=== PATIENT | female | born 1970 | race Caucasian/White ===

== ENCOUNTER → 2019-01-13 | Outpatient (CLI) | payer BC | LOC: LAB.O 08:55 | PROVIDERS: ATTEND Family Medicine | DX: E04.1 Nontoxic single thyroid nodule (principal); R13.10 Dysphagia, unspecified ==

== ENCOUNTER → 2019-01-14 | Outpatient (CLI) | payer BC ==
--- NOTE | 2019-01-17 08:27 | US ---
EXAM DESCRIPTION: Soft Tissue,Head/Neck CLINICAL HISTORY: 48 years, Female, DYSPHAGIA. Swelling on left side neck. COMPARISON: None. FINDINGS: Thyroid ultrasound demonstrates a normal size, shape, and echotexture of the thyroid gland and isthmus. The right lobe measures 4 x 1.2 x 1.3 cm. Within the right thyroid lobe a 0.5 x 0.3 x 0.3 cm hypoechoic nodule is present posteriorly. The left lobe measures 3.5 x 1.1 x 1.1 cm. Within the left thyroid lobe a 0.5 x 0.4 x 0.7 hypoechoic nodule is present laterally. There is no dominant nodule or suspicious mass. There is mild soft tissue swelling overlying the left side of neck, no underlying mass or drainable fluid collection is identified. Normal appearing lymph nodes measuring five mm in short axis is present on left. No enlarged or suspicious lymph nodes. IMPRESSION: 1. Normal thyroid size and echotexture. Subcentimeter thyroid nodule (one on each side). No routine nodule follow-up. 2. No lymphadenopathy, mass, or drainable fluid collection seen on ultrasound. If patient's symptoms persist, further evaluation with CT soft tissue neck can be considered. Electronically signed by: Ernesto Cook DO 01/17/2019 8:25 AM CDT
== END ==
LOC: US 13:23
PROVIDERS: ATTEND Family Medicine
DX: R13.10 Dysphagia, unspecified (principal)

== ENCOUNTER 2019-01-18 14:06 | Emergency (ER) | payer BC ==
[2019-01-18 14:36] VITALS: TEMP 99.1
--- NOTE | 2019-01-18 15:10 | RAD ---
EXAM DESCRIPTION: Chest,1 View CLINICAL HISTORY: 48 years Female, shortness of breath COMPARISON: None. IMPRESSION: Heart size and pulmonary vascularity are within normal limits. There is no airspace consolidation, pleural effusion, or pneumothorax. No acute osseous abnormality. Electronically signed by: Yoshi Guzman MD 01/18/2019 3:08 PM CDT
--- NOTE | 2019-01-18 15:55 | ED.PDOC ---
History of Present Illness - General Chief Complaint: Respiratory Problem Time Seen by Provider: 01/18/19 15:29 Source: patient, family Exam Limitations: no limitations - History of Present Illness Initial Comments: 2 WKS PAIN IN LEFT HEAD, NECK, JAW, SUPERIOR CHEST, AND TINGLING OF LUE. ALSO SOB. LEFT CP OFF AND ON X 2 WKS. TODAY ALSO FELT LIGHT-HEADED AND JITTERY. L NECK SWOLLEN AND TTP. DR. BUTT ORDERED U/S (NEG EXCEPT FOR SOFT TISSUE SWELLING). Timing/Duration: intermittent Severity: moderate Improving Factors: nothing Worsening Factors: nothing Associated Symptoms: chest pain, headaches, shortness of breath Allergies/Adverse Reactions: Allergies NO KNOWN ALLERGY Allergy (Verified 01/18/19 14:36) Home Medications: Ambulatory Orders Methylprednisolone [Medrol Dose Michael] 4 mg PO DAILY #1 tab 01/18/19 raNITIdine HCL [Zantac] 150 mg PO DAILY 01/18/19 Review of Systems - Review of Systems Constitutional: States: no symptoms reported EENTM: Denies: eye pain, blurred vision, ear pain, nose pain, throat pain Respiratory: States: short of breath. Denies: cough, wheezing Cardiology: States: chest pain. Denies: palpitations Gastrointestinal/Abdominal: Denies: abdominal pain, nausea Genitourinary: States: no symptoms reported Musculoskeletal: States: neck pain - LEFT SUPERFICIAL TISSUES. . Denies: back pain, joint pain Skin: States: no symptoms reported Neurological: States: headache - L FRONTAL PEREZ, ABSENT AT PRESENT. INTERMITTENT. , paresthesia - LUE Endocrine: States: no symptoms reported Hematologic/Lymphatic: States: no symptoms reported All other Systems: Reviewed and Negative Past Medical History (General) - Patient Medical History Hx Seizures: No Hx Asthma: No Hx Thyroid Disease: No Hx Diabetes: No Hx Gastroesophageal Reflux: Yes Surgical History: cholecystectomy, other - Social History Hx Tobacco Use: No - Female History Patient is a Female of Child Bearing Age (10 -59 yrs old): Yes Patient : No Family Medical History - Family History Mother Family History: No Known Physical Exam - Physical Exam General Appearance: Alert, Obese Eye Exam: bilateral normal Ears, Nose, Throat: hearing grossly normal, normal ENT inspection - TM'S CLEAR. , normal pharynx Neck: full range of motion, normal inspection, tender lateral - L SUPERFICIAL NECK AND SUPERIOR CHEST EXQUISITELY TTP. NO PAIN WITH NECK MOVEMENT. NEG KERNIG AND BRUDZINSKI'S. NO AMS. NO FEVERS. Respiratory: chest non-tender, lungs clear, normal breath sounds, no respiratory distress, no accessory muscle use Cardiovascular/Chest: normal peripheral pulses, regular rate, rhythm, no edema, no gallop, no JVD, no murmur Peripheral Pulses: radial,right: 2+, radial,left: 2+ Gastrointestinal/Abdominal: normal bowel sounds, non tender, soft Extremity: normal range of motion, non-tender, normal inspection, pedal edema - BLE PRE-TIBIAL AND ANKLE EDEMA. Neurologic: nurse chemical dependency II-XII nml as tested, no motor/sensory deficits, alert, normal mood/affect, oriented x 3 Skin Exam: normal color, warm/dry Lymphatic: no adenopathy - L NECK SOFT TISSUE TTP BUT NO DISCRETE LYMPH NODES. Progress - Progress Progress: 01/18/19 16:53 W/U WNL SO FAR. HEAD CT AND NECK SOFT TISSUE PENDING. 01/18/19 17:17 THE RADIOLOGIST CALLED ME AND INFORMED ME THE BRAIN CT NEEDS TO BE WITHOUT AND WITH CONTRAST, SO I AM PLACING THE ORDER RIGHT NOW AND THEY WILL TAKE HER BACK TO CT AGAIN TO DO BRAIN WITHOUT CONTRAST. 01/18/19 19:25 ENTIRE W/U NEG: CARD ENZ, CBC, CMP, COAG, EKG, CXR, UA, BNP, HEAD CT, NECK SOFT TISSUE CT. NO EXPLANATION FOR PT'S SX. CP X 2 WKS, THUS 1 SET CARD ENZ R/O ACS. RX MEDROL DOSE PACK FOR ANTI-INFLAMMATORY. F/U W/ PCP OR ENT. 01/18/19 19:29 Departure - Departure Clinical Impression: Frontal headache, Neck pain on left side, Jaw pain, Non-cardiac chest pain, Paresthesia of left arm Disposition: Discharge to Home or Self Care Condition: Good Departure Forms: ED Discharge - Pt. Copy, Patient Portal Self Enrollment Instructions: Chest Pain That Is Not Caused by the Heart (DC) Diet: resume usual diet Activity: increase activity as tolerated Referrals: Dion Butt III, MD [Primary Care Provider] - 1-2 Weeks Prescriptions: Methylprednisolone [Medrol Dose Michael] 4 mg PO DAILY #1 tab Home Medications: Ambulatory Orders Methylprednisolone [Medrol Dose Michael] 4 mg PO DAILY #1 tab 01/18/19 raNITIdine HCL [Zantac] 150 mg PO DAILY 01/18/19
--- NOTE | 2019-01-18 17:35 | CT ---
EXAM DESCRIPTION: Soft Tissue Neck w/Contrast: Computed Tomography CLINICAL HISTORY: 48 years Female, 2 WKS LEFT PAIN IN HEAD, NECK, JAW, TINGLING LUE COMPARISON: CT scan of the head with IV contrast on the same visit. TECHNIQUE: Spiral, axial 2.5 x 2.5 mm scans through the neck soft tissues after infusion of IV contrast. Sagittal and coronal 2.0 mm reconstructions. Axial 1.25 mm reconstructions. No adverse reactions. Total Exam DLP: 458.55 mGy-cm. This exam was performed according to our departmental CT dose-optimization program which includes automated exposure control, adjustment of the mA and/or kV according to patient size and/or use of iterative reconstruction technique; to reduce radiation dose to as low as reasonably achievable (ALARA). FINDINGS: Normal caliber of the airway from the nasopharynx to the thoracic inlet with no effacement or displacement. Thyroid gland is negative. Small lymph nodes in the upper mediastinum. No enlarged lymph nodes in the parathyroid region, paracervical region, carotid spaces or parapharyngeal spaces. Normal size and enhancement of the submandibular glands, parotid glands, and the sublingual glands. The subdermal and subcutaneous adipose tissue is symmetric. Included lungs are negative. The included cervical spine and thoracic spine is unremarkable. IMPRESSION: No soft tissue masses or fluid collections or abnormal contrast enhancement in the neck. Electronically signed by: Calvin Reynolds MD 01/18/2019 5:34 PM CDT
--- NOTE | 2019-01-18 18:21 | CT ---
EXAM DESCRIPTION: Head w/wo IV Contrast: Computed Tomography. CLINICAL HISTORY: HEADACHES COMPARISON: CT neck soft tissues with IV contrast on this visit. TECHNIQUE: Non-helical axial scans through the skull and brain, at 2.5 x 20 mm intervals, non-contrast. Repeated after 75 mL Optiray 320 nonionic IV contrast. Coronal and sagittal 2.0 mm reconstructions, before and after IV contrast. Total Exam DLP: 1089.2 mGy-cm. This exam was performed according to our departmental dose-optimization program which includes automated exposure control, adjustment of the mA and/or kV according to patient size and/or use of iterative reconstruction technique; to reduce radiation dose to as low as reasonably achievable (ALARA). FINDINGS: No hemorrhage, no mass-effect, and no midline shift. Normal reyes-white matter differentiation. No abnormal radiodense material in the brain parenchyma. No abnormal contrast enhancement. Vascular calcifications not present; physiologic calcifications in the pineal gland and choroid plexus. Normal contrast enhancement. No effacement or displacement of the ventricles, CSF spaces, or subdural spaces. Slight prominence of the cortical sulci of the frontal lobes for patient's age. No extra axial fluid collection or hemorrhage. Normal contrast enhancement. No gross abnormalities of the bony calvarium. Minimal mucoperiosteal thickening in the maxillary antra with no air-fluid levels. Mastoid air cells are negative. The included belkofski of Lemus is unremarkable. IMPRESSION: 1. No hemorrhage, no mass effect, no midline shift. No abnormal brain parenchymal enhancement. No extra-axial abnormal enhancement or fluid or hemorrhage. Electronically signed by: Calvin Reynolds MD 01/18/2019 6:19 PM CDT
[2019-01-18] MEDS ORDERED: KETOROLAC TROMETHAMINE INJ 30 MG/ML VIAL IV ONE (18:26)
[2019-01-18 19:11] VITALS: BP 118/74; O2SAT 99
[2019-01-18] MEDS ORDERED: methylPREDNISolone ACETATE 80 MG/ML VIAL IM ONE (19:26)
== END 2019-01-18 19:50 | disposition home or self-care (01) ==
LOC: ER 14:06
DX: R07.89 Other chest pain (principal); R51 Headache; M54.2 Cervicalgia; R68.84 Jaw pain; R20.2 Paresthesia of skin; K21.9 Gastro-esophageal reflux disease without esophagitis; Z90.49 Acquired absence of other specified parts of digestive tract
CPT/HCPCS: 36415; 70470; 70491; 71045; 80048; 81001; 82550; 82553; 83880; 84484; 85025; 85610; 85730; 87086; 93005; J1030; J1885

== ENCOUNTER → 2019-02-01 | Outpatient (CLI) | payer BC ==
--- NOTE | 2019-02-03 20:36 | MAM ---
EXAM DESCRIPTION: 3D Screening BILATERAL : Digital Mammography. CLINICAL HISTORY: 48 years Female SCREEN . No complaints. No personal history of breast cancer. Remote family history of breast cancer. Childbirth. Premenopausal. No HRT.. Lifetime risk of developing breast cancer (Tyrer-Cuzick model)(%): 7.8. COMPARISON: Not available at this time.. No prior reports available. TECHNIQUE: Bilateral CC and MLO projection full-field images, digital tomosynthesis mammographic technique. Bilateral digital 2-D full-field MLO images. CAD not available for tomosynthesis or 2-D images. FINDINGS: The breast parenchymal density pattern is: Heterogeneously dense breast tissue, which may obscure small masses. No skin thickening or nipple retraction. Bilateral skin calcifications. Focal asymmetry in the lateral aspect of the anterior third of the left breast approximately 3 cm from the nipple at the 3:00 position. Not associated with microcalcifications. No focal, stellate mass or density, focal asymmetry , and no suspicious microcalcifications right breast. IMPRESSION: BI-RADS CATEGORY: 0 - INCOMPLETE- Need prior mammograms for comparison. FOLLOW-UP: Comparison with prior examination(s) when available. Written communication explaining the results and follow-up will be mailed to the patient and referring care provider. Electronically signed by: Calvin Reynolds MD 02/03/2019 8:35 PM CDT
== END ==
LOC: MAMMO 08:00
PROVIDERS: ATTEND Obstetrics & Gynecology
DX: Z12.31 Encounter for screening mammogram for malignant neoplasm of breast (principal)

== ENCOUNTER → 2019-02-09 | Outpatient (CLI) | payer BC ==
--- NOTE | 2019-02-09 12:45 | MRI ---
EXAM DESCRIPTION: Cervical Spine CLINICAL HISTORY: NECK PAIN COMPARISON: None Available. TECHNIQUE: MRI of the cervical spine is performed according to our usual protocol. FINDINGS: Sagittal T2 images reveal mildly decreased signal intensity within the intervertebral discs. Normal T2 appearance of the cervical cord. Posterior discal abnormalities are not a prominent finding. Slight reversal of the normal cervical lordosis. Sagittal T1 images show benign marrow signal characteristics. Normal T1 appearance of the cervical and upper thoracic spinal cord. Normal alignment of the vertebral bodies and facets. Sagittal STIR images are negative for high signal intensity marrow edema within the vertebral bodies or posterior elements. No paraspinous fluid collection or cystic lesion. Axial images were obtained to evaluate the disc levels. C2-3: Normal posterior disc margin with no spinal stenosis or neural foraminal narrowing. Facets appear normal. Normal appearance of the cord at this level. C3-4: Normal posterior disc margin with no spinal stenosis or left neural foraminal narrowing. Mild right neural foraminal narrowing related to mild facet and uncinate hypertrophy. Normal appearance of the cord at this level. C4-5: Normal posterior disc margin with no spinal stenosis or right neural foraminal narrowing. Mild left neural foraminal narrowing related to facet and uncinate hypertrophy. Normal appearance of the cord at this level. C5-6: Normal posterior disc margin with no spinal stenosis or neural foraminal narrowing. Facets appear normal. Normal appearance of the cord at this level. C6-7: Normal posterior disc margin with no spinal stenosis or neural foraminal narrowing. Facets appear normal. Normal appearance of the cord at this level. C7-T1: Normal posterior disc margin with no spinal stenosis or neural foraminal narrowing. Facets appear normal. Normal appearance of the cord at this level. IMPRESSION: Negative for spinal stenosis or acute appearing disc herniation. Electronically signed by: Shade Alfonso MD 02/09/2019 12:44 PM CDT
== END ==
LOC: MRI 10:59
PROVIDERS: ATTEND Family Medicine
DX: M54.2 Cervicalgia (principal)

== ENCOUNTER → 2019-03-24 | Outpatient (CLI) | payer BC ==
--- NOTE | 2019-03-24 15:06 | US ---
EXAM DESCRIPTION: Breast,Left (accession [id number]), digital mammography. 3D Diagnostic, Left (accession [id number]): Ultrasound CLINICAL HISTORY: 48 yearsFemaleABN MAMMO . Focal asymmetry lateral left breast. COMPARISON: Bilateral screening digital breast tomosynthesis 01 February 2019. TECHNIQUE: Left breast LM projection full-field images, and left breast CC and LM Spot compression: digital tomosynthesis technique. Left breast 2-D digital full-field images:. LM, CC, projections and spot compression LM, and spot compression CC projections. CAD not available. . Transcutaneous scanning of the left breast utilizing reyes-scale and Doppler modes. Scanning performed by the associate director regulatory affairs ; observation by Dr. Reynolds. FINDINGS: The breast parenchymal density pattern is: Heterogeneously dense breast tissue, which may obscure small masses. No skin thickening or nipple retraction skin marker indicating a skin mole on the superior breast. The focal asymmetry is not well-defined on the spot compression tomosynthesis images. No new focal, stellate mass or density, focal asymmetry , and no suspicious microcalcifications left breast. Ultrasound: Scanning of the lateral left breast 3 cm from the nipple. Heterogeneous fibroglandular tissues with minimal fatty tissues. Anechoic cyst with thin circumscribed shaver, wider than tall orientation, and posterior acoustic shadowing measuring 5.6 x 5.4 mm. Not vascular. A second cyst with same imaging characteristics measures 5.2 x 4.4 mm with no vascularity. 2 additional cysts measure 3.5 and 2.8 mm long axis. A fourth cyst measures 6.2 x 2.4 mm. No cysts are vascular. IMPRESSION: Benign exam. BIRAD CATEGORY: 2 BENIGN FINDINGS. RECOMMENDATIONS: FOLLOW UP: Routine digital bilateral mammographic screening, one year interval from February 2019. Written communication explaining the IMPRESSION and follow-up, will be mailed to the patient and referring health care provider. The FINDINGS and the FOLLOW-UP plan were reviewed in person with the patient after the examination. According to the [employer], yearly mammograms are recommended starting at age 40 and continuing as long as a woman is in good health. Any breast change noted on a breast self-exam should be reported promptly to the patient's healthcare provider. Breast MRI is recommended for women with an approximately 20-25% or greater lifetime risk of breast cancer, including women with a strong family history of breast or ovarian cancer and women who have been treated for Hodgkin's disease. A negative mammographic report should not delay tissue diagnosis in patients with significant clinical history or physical findings. Extremely dense breast tissue limits the sensitivity of digital mammography. Electronically signed by: Calvin Reynolds MD 03/24/2019 3:04 PM CDT
== END ==
LOC: MAMMO 09:47
PROVIDERS: ATTEND Obstetrics & Gynecology
DX: N60.02 Solitary cyst of left breast (principal); S59.011A Salter-Harris Type I physeal fracture of lower end of ulna, right arm, initial encounter for closed fracture; R07.89 Other chest pain
CPT/HCPCS: 76641; 77065; G0279

== ENCOUNTER → 2019-12-09 | Outpatient (CLI) | payer BC | LOC: GMAL 10:47 | PROVIDERS: ATTEND Family Medicine | DX: Z00.01 Encounter for general adult medical examination with abnormal findings (principal); Z79.899 Other long term (current) drug therapy; R53.83 Other fatigue ==

== ENCOUNTER → 2019-12-22 | Outpatient (CLI) | payer BC ==
--- NOTE | 2019-12-23 07:50 | CT ---
TECHNIQUE: Spiral CT examination of the neck performed. Multiplanar reformats performed. Intravenous contrast was utilized. This exam was performed according to our departmental dose-optimization program, which includes automated exposure control, adjustment of the mA and/or kV according to patient size and/or use of iterative reconstruction technique. CLINICAL HISTORY PROVIDED: LOCALIZED SWELLING MASS AND LUMP NECK COMPARISON: 01/18/2019 FINDINGS: Nasal Cavity: Unremarkable. Paranasal Sinuses: Unremarkable. Nasopharynx: Unremarkable. Oropharynx: Unremarkable. Oral Cavity: Unremarkable. Hypopharynx: Unremarkable. Larynx: Unremarkable. Trachea: Unremarkable. Thyroid: Unremarkable. Parotid Glands: Unremarkable. Submandibular Glands: Unremarkable. Carotids / Internal Jugular Veins: Unremarkable. Skull Base: Unremarkable. Visible Brain and Orbits: Unremarkable. Lymph Nodes: Unremarkable. Soft Tissue Mass / Abscess: None present. Incidental Findings: Debris in the left external auditory canal. IMPRESSION: Unremarkable CT neck. Electronically signed by: Reyes Dawkins MD 12/23/2019 7:48 AM CDT
== END ==
LOC: LAB.O 10:36
PROVIDERS: ATTEND Family Medicine
DX: Z01.812 Encounter for preprocedural laboratory examination (principal); R22.1 Localized swelling, mass and lump, neck; R53.83 Other fatigue